=== PATIENT | male | born 1965 | race African-American/Black ===

== ENCOUNTER 2016-12-05 03:01 | Emergency (ER) | payer BC ==
[~2016-12-05 03:01] MED LIST: MOTRIN600 MG PO
[2016-12-05] MEDS ORDERED: AMOXICILLIN500 M2 PO (03:24)
== END 2016-12-05 04:05 ==
LOC: EDMED 03:01
DX: H66.92 Otitis media, unspecified, left ear (principal); J06.9 Acute upper respiratory infection, unspecified; I10 Essential (primary) hypertension